=== PATIENT | male | born 1975 | race Hispanic/Latino ===

== ENCOUNTER 2018-11-11 01:49 | Emergency (ER) | payer MEDICAID ==
[2018-11-11 02:15] VITALS: BP 134/94; PULSE 105; RESP 18; TEMP 98.7; O2SAT 99
--- NOTE | 2018-11-11 03:12 | ED PDOC ---
HPI: Psych/Substance Abuse Time Seen by Provider: 11/11/18 02:20 Chief Complaint (Nursing): Psychiatric Evaluation Chief Complaint (Provider): Psychiatric Evaluation History Per: Patient History/Exam Limitations: no limitations Onset/Duration Of Symptoms: Days (x1 week) Additional Complaint(s): 43 y/o male with history of depression presents to the ED complaining of depression and suicidal ideation for x1 week. Patient is undomiciled and states he has suicidal thoughts with plans to jump of a bridge. Patient admits he is noncompliant with anti depressive medication. Patient denies drug use but has a bottle of suboxonewith him. Past Medical History Reviewed: Historical Data, Nursing Documentation, Vital Signs Vital Signs: Last Vital Signs Temp 98.7 F 11/11/18 02:00 Pulse 105 H 11/11/18 02:00 Resp 18 11/11/18 02:00 BP 134/94 H 11/11/18 02:00 Pulse Ox 99 11/11/18 02:00 - Medical History PMH: No Chronic Diseases - Surgical History Surgical History: No Surg Hx - Family History Family History: States: Unknown Family Hx - Social History Current smoker - smoking cessation education provided: Yes Alcohol: None Drugs: Denies - Allergies Allergies/Adverse Reactions: Allergies Allergy/AdvReac Type Severity Reaction Status Date / Time No Known Allergies Allergy Verified 11/11/18 02:21 Review of Systems ROS Statement: Except As Marked, All Systems Reviewed And Found Negative Psych: Positive for: Depression, Suicidal ideation Physical Exam - Reviewed Nursing Documentation Reviewed: Yes Vital Signs Reviewed: Yes - Physical Exam Appears: Positive for: Well, Non-toxic, No Acute Distress Head Exam: Positive for: ATRAUMATIC, NORMAL INSPECTION, NORMOCEPHALIC Skin: Positive for: Normal Color, Warm, DRY Eye Exam: Positive for: Normal appearance, EOMI, PERRL, Other (small ecchymosis below bilateral eyes - patient states from a fall several weeks ago) ENT: Positive for: Normal ENT Inspection Neck: Positive for: Normal, Painless ROM Cardiovascular/Chest: Positive for: Regular Rate, Rhythm. Negative for: Murmur Respiratory: Positive for: Normal Breath Sounds. Negative for: Respiratory Distress Gastrointestinal/Abdominal: Positive for: Normal Exam, Soft. Negative for: Tenderness Back: Positive for: Normal Inspection Extremity: Positive for: Normal ROM. Negative for: Pedal Edema, Deformity Neurologic/Psych: Positive for: Alert, Oriented. Negative for: Motor/Sensory Deficits - ECG O2 Sat by Pulse Oximetry: 99 (RA) Pulse Ox Interpretation: Normal Medical Decision Making Medical Decision Making: Time: 02:21 Initial Impression: 43 y/o with depression and suicidal thoughts Initial Plan: * 1:1 Observation * Crisis evaluation 03:47 Patient cleared by crisis for discharge. Diagnosis is bipolar disorder. Scribe Attestation: Documented by Ramírez Palma acting as a scribe for Dax More MD. Provider Scribe Attestation: All medical record entries made by the Scribe were at my direction and personally dictated by me. I have reviewed the chart and agree that the record accurately reflects my personal performance of the history, physical exam, medical decision making, and the department course for this patient. I have also personally directed, reviewed, and agree with the discharge instructions and disposition. Disposition - Clinical Impression Clinical Impression: Bipolar disorder - Patient ED Disposition Is Patient to be Admitted: No - Disposition Disposition: Routine/Home Disposition Time: 03:47 Condition: STABLE Instructions: Bipolar Disorder Forms: [employer] (Romanian)
== END 2018-11-11 06:30 | disposition home or self-care (01) ==
LOC: H.ER 01:49
DX: F31.9 Bipolar disorder, unspecified (principal); Z91.19 Patient's noncompliance with other medical treatment and regimen